=== PATIENT | female | born 1985 | race African-American/Black ===

== ENCOUNTER 2016-04-17 10:05 | Emergency (ER) | payer SELFPAY ==
[2016-04-17 10:10] VITALS: BP 121/71
--- NOTE | 2016-04-17 10:14 | ER Document Report ---
ED Medical Screen (RME) - General Stated Complaint: EARACHE Time seen by provider: 10:11 Mode of Arrival: Ambulatory Information source: Patient Notes: 30-year-old female presents to ED with a earache on the left she states she just got over the flu and upper respiratory infection and she works with children. She denies smoking. Last menstrual period 04/05/2016. Cerebrum impaction on the left ear some wax noted on the right. Unable to see tympanic membrane. I have greeted and performed a rapid initial assessment of this patient. A comprehensive ED assessment and evaluation of the patient, analysis of test results and completion of medical decision making process will be conducted by an additional ED providers. TRAVEL OUTSIDE OF THE [place] IN LAST 30 DAYS: No - Related Data Allergies/Adverse Reactions: No Known Allergies Allergy (Verified 04/17/16 10:10) Past Medical History Pulmonary Medical History: Denies: Hx Asthma - Immunizations Hx Diphtheria, Pertussis, Tetanus Vaccination: Yes Physical Exam - Vital signs Vitals: Temp Pulse Resp BP Pulse Ox 97.5 F 62 20 121/71 99 04/17/16 10:09 04/17/16 10:09 04/17/16 10:04/17/16 10:04/17/16 10:09 Course - Vital Signs Vital signs: Temp Pulse Resp BP Pulse Ox 97.5 F 62 20 121/71 99 04/17/16 10:09 04/17/16 10:09 04/17/16 10:04/17/16 10:09 04/17/16 10:09
--- NOTE | 2016-04-17 11:30 | ER Document Report ---
ED ENT - General Chief Complaint: Left Ear Pain Stated Complaint: EARACHE Time seen by provider: 11:22 Mode of Arrival: Ambulatory Information source: Patient TRAVEL OUTSIDE OF THE [place] IN LAST 30 DAYS: No - HPI Patient complains to provider of: Ear problem - pt. with c/o L earache for the past 2-3 days - Related Data Allergies/Adverse Reactions: No Known Allergies Allergy (Verified 04/17/16 10:10) Past Medical History - General Information source: Patient - Social History Smoking Status: Never Smoker Chew tobacco use (# tins/day): No Frequency of alcohol use: None Drug Abuse: None Family History: Reviewed & Not Pertinent Patient has suicidal ideation: No Patient has homicidal ideation: No Pulmonary Medical History: Denies: Hx Asthma Renal/ Medical History: Denies: Hx Peritoneal Dialysis - Immunizations Hx Diphtheria, Pertussis, Tetanus Vaccination: Yes Review of Systems - Review of Systems Constitutional: No symptoms reported EENT: See HPI, Ear pain Cardiovascular: No symptoms reported Respiratory: No symptoms reported -: Yes All other systems reviewed and negative Physical Exam - Vital signs Vitals: Temp Pulse Resp BP Pulse Ox 97.5 F 62 20 121/71 99 04/17/16 10:09 04/17/16 10:09 04/17/16 10:09 04/17/16 10:09 04/17/16 10:09 - General General appearance: Appears well In distress: None - HEENT Tympanic membrane: Injected, Loss of landmarks - on L; R TM is normal Pharynx: Normal Neck: Normal - Respiratory Respiratory status: No respiratory distress Breath sounds: Normal - Cardiovascular Rhythm: Regular Heart sounds: Normal auscultation Course - Vital Signs Vital signs: Temp Pulse Resp BP Pulse Ox 97.5 F 62 20 121/71 99 04/17/16 10:09 04/17/16 10:09 04/17/16 10:09 04/17/16 10:09 04/17/16 10:09 Discharge - Discharge Clinical Impression: Otitis media Qualifiers: Otitis media type: unspecified Laterality: left Chronicity: acute Condition: Stable Disposition: HOME, SELF-CARE Additional Instructions: rest, take meds as prescribed, return if worse Prescriptions: Amoxicillin Trihydrate [Amoxil 500 mg Capsule] 500 mg PO TID #30 capsule Referrals: DEVIN HOLT MD [ACTIVE STAFF] - Follow up as needed
== END 2016-04-17 11:55 | disposition home or self-care (01) ==
LOC: ER 10:05
DX: H66.92 Otitis media, unspecified, left ear (principal); H92.02 Otalgia, left ear
CPT/HCPCS: 99282